=== PATIENT | female | born 1930 | race African-American/Black ===

== ENCOUNTER 2021-02-21 21:25 | Emergency (ER) | payer MEDICARE, BC ==
[~2021-02-21] VITALS: Ht 160 cm; Wt 55.0 kg
[~2021-02-21 21:25] MED LIST: AMLO-337 MT; APIX5TAB MT; BENA20TA77 MT; COLC0.6C3 MT; DOCU-138 MT; DOCU100T MT; EZET10TA13 MT; FURO40TA5 MT; HYDR-4134 MT; KEPP500 MT; METF-414 MT
[2021-02-21] MEDS ORDERED: IBUPROFEN 400MG TABLET PO ONE (23:00)
[2021-02-22] MEDS ORDERED: IBUP-2028 MT (02:25)
[2021-02-22 07:21] VITALS: BP 126/70
== END 2021-02-22 07:22 | disposition home or self-care (01) ==
LOC: ER 21:25
DX: M87.812 Other osteonecrosis, left shoulder (principal); M19.012 Primary osteoarthritis, left shoulder; F17.200 Nicotine dependence, unspecified, uncomplicated; I10 Essential (primary) hypertension; Z88.0 Allergy status to penicillin; Z79.899 Other long term (current) drug therapy
CPT/HCPCS: 71045; 73030; 93005; 99285